=== PATIENT | female | born 1985 | race Asian ===

== ENCOUNTER → 2020-02-21 | Outpatient (CLI) | payer BC | LOC: COL.RAD 14:15 | DX: R22.1 Localized swelling, mass and lump, neck (principal) ==

== ENCOUNTER 2021-08-22 09:43 | Outpatient (CLI) | payer BC ==
[~2021-08-22] VITALS: Ht 157.5 cm; Wt 68.2 kg
--- NOTE | 2021-08-22 09:55 | NUR ---
Patient ambulates to LR1 with spouse, changes into gown, FHR/TOCO monitors placed. Patient states she has been ronan since this morning. Denies any leaking of fluid, vaginal bleeding, or decreased movement. Plan of care discussed. DILCIA Welch Case RN Assessment done and plan of care discussed. Questions answered.
[2021-08-22] MEDS ORDERED: PRENATAL PLUS PO (10:06)
[2021-08-22] MEDS ORDERED: TUMS500 MG (10:06)
[2021-08-22 10:30] VITALS: BP 115/71; PULSE 75; TEMP 97.9
[2021-08-22 11:09] VITALS: BP 113/70; PULSE 72
--- NOTE | 2021-08-22 11:09 | NUR ---
Patient off monitors and verbalizes understanding of discharge. Patient agrees to be discharged home and [facility] answered. 1125: Patient ambulatory off unit with spouse.
== END 2021-08-22 11:25 | disposition home or self-care (01) ==
LOC: LDRO 09:43
DX: O62.9 Abnormality of forces of labor, unspecified (principal); Z3A.40 40 weeks gestation of pregnancy

== ENCOUNTER 2021-08-25 03:09 | Inpatient (IN) | payer BC ==
[~2021-08-25] VITALS: Ht 160 cm; Wt 68.2 kg
[2021-08-25] VITALS (26 sets, daily range): BP systolic 100–147; BP diastolic 56–88; PULSE 69–88; TEMP 97.9–98.1
[~2021-08-25 03:09] MED LIST: PRENATAL PLUS PO; TUMS500 MG
--- NOTE | 2021-08-25 03:20 | NUR ---
0320 G5L1 40.3 WEEK GEST TO LR6 WITH C/O CONTRACTIONS SINCE MIDNIGHT AND SROM AT 0130. LEAKS CL FLUID. EFM ON. SVE /-2. ADM ASSESSMENT DONE. STATES WAS ON LOVANOX UNTIL A MONTH AGO FOR A CLOTTING DISORDER. 0350 DR BAER ON UNIT AND REPORT GIVEN. ADMITTED INPATIENT AND ROVING OR YARN COLOR CHECKER CALLED FOR EPIDURAL PLACEMENT
--- NOTE | 2021-08-25 04:10 | NUR ---
0410 SITTING UP FOR EPIDURAL PLACEMENT. UNABLE TO OBTAIN CONTINUOUS FHT TRACING WHILE SITTING UP. 0421 EPID TEST DOSE. SEE ANESTHSIA RECORD FOR MORE INFORMATION.
[2021-08-25 04:12] LABS: BASO % 0.3 % (0.0-2.0); EOS % 0.7 % (0.0-4.0); GRAN # 3.8 K/mm3 (1.4-6.5); GRAN % 62.4 % (42.2-75.2); HEMOGLOBIN 12.6 g/dl (12.5-16.0); LYMPH # 1.6 K/mm3 (1.2-3.4); LYMPH % 26.9 % (20.0-51.0); MEAN CELL VOLUME 90 fl (80.0-100.0); MEAN CORPUSCULAR HEMOGLOBIN 31 pg (27-31); MEAN CORPUSCULAR HGB CONC 35 g/dl (33.0-37.0); MEAN PLATELET VOLUME 11.7 fl (7.4-10.4); MONO # 0.5 K/mm3 (0.1-0.6); MONO % 8.9 % (1.7-9.3); PLATELET COUNT 140 K/mm3 (130-400); RED BLOOD COUNT 4.04 M/mm3 (4.10-5.30); REDCELL DISTRIBUTION WIDTH-CV 14.6 % (11.5-14.5)
[2021-08-25 04:13] LABS: HEMATOCRIT 36.5 % (37.0-47.0)
--- NOTE | 2021-08-25 06:15 | NUR ---
Assumed care of patient. Rests in bed, alert. Denies any discomfort at this time.
--- NOTE | 2021-08-25 06:30 | NUR ---
Rests in bed with eyes closed. Resperations even and unlabored.
--- NOTE | 2021-08-25 07:00 | NUR ---
Vag exam done, complete. See physicians notes please.
--- NOTE | 2021-08-25 07:40 | NUR ---
Dr. Perry here, vag exam done. States we can start pushing.
--- NOTE | 2021-08-25 07:45 | NUR ---
Starts pushing with contractions with Dr. Perry. 0758 Spontaneous delivery of baby boy by Dr. Perry. 0803 Spontaneous delivery of placenta by Dr. Perry. Pitocin started at 333cc an hour as ordered and per policy.
--- NOTE | 2021-08-25 08:15 | NUR ---
Rests in bed, alert. Holds baby lovingly.
--- NOTE | 2021-08-25 08:45 | NUR ---
Rests in bed, alert. Denies any needs at this time.
--- NOTE | 2021-08-25 09:30 | NUR ---
Rests in bed, alert. Family at bedside. Denies any needs at this time.
--- NOTE | 2021-08-25 10:25 | NUR ---
Rests in bed, eating breakfast. Denies any needs at this time.
--- NOTE | 2021-08-25 11:30 | NUR ---
To bathroom via wheel chair. Assists to the bathroom. Tolerates well. Ashley-care done by patient. Explained to patient about the ice pack. She states that will be fine to use. To room 207 via wheel chair. Oriented to room. Let her know that she needs to call out if she needs to go to the bathroom. Verbalizes understanding.
--- NOTE | 2021-08-25 14:00 | NUR ---
Calls out needing to go to the bathroom. Ambulates to the bathroom and back. Tolerates well.
--- NOTE | 2021-08-25 17:15 | NUR ---
Rests in bed, alert. baby. Tylenol 1000 mg given per request and as ordered.
[2021-08-26 02:05] VITALS: BP 135/69; PULSE 74
[2021-08-26] MEDS ORDERED: MOTRIN 800800 MG/TAB PO (08:25)
[2021-08-26 08:40] VITALS: BP 106/52; PULSE 69; TEMP 97.8
--- NOTE | 2021-08-26 10:15 | NUR ---
Initial visit; Parents thanked for looking in on them and offering congratulations for the of their son. thanked family for choosing [facility].
[2021-08-26 19:45] VITALS: BP 130/81; PULSE 87; TEMP 97.9
[2021-08-27 08:03] VITALS: BP 104/68; PULSE 78; TEMP 98.1
--- NOTE | 2021-08-27 09:41 | NUR ---
3605 baby to breast. SNS instucted and taught to patient and , helps with this . verbal understanding noted. Denies needs at this time
== END 2021-08-27 11:36 | disposition home or self-care (01) | DRG 806 ==
LOC: LDRO 03:09 → LDR 03:45 → OB 03:45
PROVIDERS: Obstetrics & Gynecology; ADMIT Obstetrics & Gynecology
PROC: 10E0XZZ Delivery of Products of Conception, External Approach (ICD-10-PCS; principal; 2021-08-25)
PROC: 0KQM0ZZ Repair Perineum Muscle, Open Approach (ICD-10-PCS; 2021-08-25)
DX: O48.0 Post-term pregnancy (principal); E72.12 Methylenetetrahydrofolate reductase deficiency; Z37.0 Single live birth; O99.12 Other diseases of the blood and blood-forming organs and certain disorders involving the immune mechanism complicating childbirth; D68.59 Other primary thrombophilia; O99.284 Endocrine, nutritional and metabolic diseases complicating childbirth; O70.1 Second degree perineal laceration during delivery; Z3A.40 40 weeks gestation of pregnancy
CPT/HCPCS: J2590; J7120